=== PATIENT | female | born 2000 | race Two or more races ===

== ENCOUNTER 2022-05-25 10:07 | Emergency (ER) | payer OTHER ==
[~2022-05-25] VITALS: Ht 157.5 cm; Wt 72.6 kg
[2022-05-25] MEDS ORDERED: PRENATAL + DHA1 EAC1 PO (10:21)
== END 2022-05-25 14:24 | disposition home or self-care (01) ==
LOC: ER 10:07
DX: O99.611 Diseases of the digestive system complicating pregnancy, first trimester (principal); K92.89 Other specified diseases of the digestive system; Z3A.11 11 weeks gestation of pregnancy; Z88.6 Allergy status to analgesic agent

== ENCOUNTER → 2022-05-25 | Emergency (ER) | payer OTHER ==
[~2022-05-25] VITALS: Ht 157.5 cm; Wt 72.6 kg
[~2022-05-25] MED LIST: PRENATAL + DHA1 EAC1 PO
== END | disposition left against medical advice (07) ==
LOC: ER 19:08
DX: O26.91 Pregnancy related conditions, unspecified, first trimester (principal); S39.92XA Unspecified injury of lower back, initial encounter; W18.30XA Fall on same level, unspecified, initial encounter; Y93.9 Activity, unspecified; Y92.019 Unspecified place in single-family (private) house as the place of occurrence of the external cause; Z3A.11 11 weeks gestation of pregnancy

== ENCOUNTER 2022-06-21 14:12 | Emergency (ER) | payer OTHER ==
[~2022-06-21] VITALS: Ht 152.4 cm; Wt 73.0 kg
== END 2022-06-21 16:50 | disposition home or self-care (01) ==
LOC: ER 14:12
DX: O26.892 Other specified pregnancy related conditions, second trimester (principal); A49.3 Mycoplasma infection, unspecified site; Z3A.15 15 weeks gestation of pregnancy; Z88.6 Allergy status to analgesic agent

== ENCOUNTER 2022-10-31 08:38 | Outpatient (CLI) | payer OTHER | END 2022-10-31 09:45 | disposition home or self-care (01) | LOC: PRENATAL 08:38 | PROVIDERS: ATTEND Obstetrics & Gynecology Maternal & Fetal Medicine | DX: O26.849 Uterine size-date discrepancy, unspecified trimester (principal); O36.8199 Decreased fetal movements, unspecified trimester, other fetus; O34.219 Maternal care for unspecified type scar from previous cesarean delivery; Z3A.34 34 weeks gestation of pregnancy ==

== ENCOUNTER 2022-11-12 15:29 | Outpatient (CLI) | payer OTHER | END 2022-11-13 13:37 | disposition home or self-care (01) | LOC: OBS/DEL 15:29 | PROVIDERS: ATTEND Obstetrics & Gynecology | DX: O23.43 Unspecified infection of urinary tract in pregnancy, third trimester (principal); N39.0 Urinary tract infection, site not specified; Z3A.36 36 weeks gestation of pregnancy ==

== ENCOUNTER 2022-11-26 20:13 | Outpatient (CLI) | payer OTHER | END 2022-11-27 18:05 | disposition home or self-care (01) | LOC: OBS/DEL 20:13 | PROVIDERS: ATTEND Obstetrics & Gynecology | DX: O47.1 False labor at or after 37 completed weeks of gestation (principal); Z3A.37 37 weeks gestation of pregnancy; Z88.6 Allergy status to analgesic agent ==

== ENCOUNTER 2022-11-29 11:16 | Inpatient (IN) | payer OTHER ==
[~2022-11-29] VITALS: Ht 157.5 cm; Wt 3.2 kg
== END 2022-12-07 13:48 | disposition home or self-care (01) | DRG 785 ==
LOC: OB/GYN 12-04 05:00 → O/R 12-04 05:00 → OB/GYN 12-04 08:15
PROVIDERS: ADMIT Obstetrics & Gynecology; ATTEND Obstetrics & Gynecology
PROC: 0UB70ZZ Excision of Bilateral Fallopian Tubes, Open Approach (ICD-10-PCS; 2022-12-04)
PROC: 4A1HXCZ Monitoring of Products of Conception, Cardiac Rate, External Approach (ICD-10-PCS; 2022-12-04)
PROC: 10D00Z1 Extraction of Products of Conception, Low, Open Approach (ICD-10-PCS; principal; 2022-12-04 08:15)
DX: O34.211 Maternal care for low transverse scar from previous cesarean delivery (principal); Z3A.39 39 weeks gestation of pregnancy; Z30.2 Encounter for sterilization; Z20.822 Contact with and (suspected) exposure to COVID-19; Z37.0 Single live birth

== ENCOUNTER 2023-07-02 17:51 | Emergency (ER) | payer OTHER ==
[~2023-07-02] VITALS: Ht 167.6 cm; Wt 75.7 kg
[2023-07-02 22:14] LABS: HEMATOCRIT 38.4 % (36.0-45.00); HEMOGLOBIN 13.5 g/dL (12.0-15.00); MEAN CELL VOLUME 82.5 fL (80.00-100.00); MEAN CORPUSCULAR HGB CONC 35.1 g/dl (32.0-36.0); PLATELET COUNT 281 K/uL (150-450); RED BLOOD COUNT 4.65 M/uL (4.00-6.00); RED CELL DISTRIBUTION WIDTH 13.1 % (11.5-14.5)
[2023-07-02 22:29] LABS: CREATININE SERUM 0.59 mg/dL (0.55-1.02); GFR 124.19; POTASSIUM 3.76 mEq/L (3.5-5.1)
[2023-07-02 23:18] LABS: PH,URINE 5.5 (5.0-8.0); URINE APPEARANCE Clear; URINE BILIRRUBIN Negative (NEGATIVE); URINE BLOOD Negative; URINE COLOR Yellow; URINE GLUCOSE Negative (NEGATIVE); URINE LEUKOCYTE Negative; URINE NITRATE Negative; URINE PROTEIN Negative (NEGATIVE)
[2023-07-02 23:22] LABS: URINE EPITHELIAL CELLS 12.5 uL (0.0-38.8); URINE RBC 12.3 uL (0.0-20.8); URINE WBC 17.4 uL (0.0-23.2)
== END 2023-07-03 00:09 | disposition home or self-care (01) ==
LOC: ER 17:52
PROVIDERS: General Practice
DX: M54.89 Other dorsalgia (principal); Z88.6 Allergy status to analgesic agent

== ENCOUNTER 2023-11-30 19:42 | Emergency (ER) | payer OTHER ==
[~2023-11-30] VITALS: Ht 162.6 cm; Wt 81.6 kg
[2023-11-30] MEDS ORDERED: GUAIFENESIN 200 MG/10 ML BLIST.PACK PO STA (22:14)
[2023-11-30] MEDS ORDERED: IBUprofen 100 MG/5 ML-120ML ML PO STA (22:15)
== END 2023-11-30 22:29 | disposition home or self-care (01) ==
LOC: ER 19:42
DX: J11.1 Influenza due to unidentified influenza virus with other respiratory manifestations (principal); Z20.822 Contact with and (suspected) exposure to COVID-19; Z88.6 Allergy status to analgesic agent

== ENCOUNTER 2024-05-30 08:13 | Emergency (ER) | payer OTHER ==
[~2024-05-30] VITALS: Ht 157.5 cm; Wt 82.1 kg
[2024-05-30] MEDS ORDERED: ORPHENADRINE CITRATE 30 MG/ML AMPUL IM STA (09:21)
[2024-05-30] MEDS ORDERED: KETOROLAC TROMETHAMINE 60 MG VIAL IM STA (09:22)
[2024-05-30] MEDS ORDERED: ORPHENADRINE CITRATE 30 MG/ML AMPUL ONE (09:25)
[2024-05-30] MEDS ORDERED: KETOROLAC TROMETHAMINE 60 MG VIAL IM ONE (09:25)
== END 2024-05-30 14:22 | disposition home or self-care (01) ==
LOC: ER 08:15
DX: R51.9 Headache, unspecified (principal)

== ENCOUNTER 2025-04-20 07:06 | Emergency (ER) | payer OTHER ==
[2025-04-20] MEDS ORDERED: IBUPROFEN600 MG PO (10:27)
[2025-04-20] MEDS ORDERED: KETOROLAC TROMETHAMINE 30 MG VIAL IM ONE (10:30)
[2025-04-20] MEDS ORDERED: DEXAMETHASONE SODIUM PHOSPHATE 4 MG/ML VIAL IM ONE (10:30)
== END 2025-04-20 10:57 | disposition home or self-care (01) ==
LOC: ER 07:20
DX: R51.9 Headache, unspecified (principal)

== ENCOUNTER → 2025-07-21 08:55 | Outpatient (CLI) | payer OTHER ==
[~2025-07-21 08:55] MED LIST changes: +IBUPROFEN600 MG PO
[2025-07-21 09:30] LABS: URINE APPEARANCE Clear; URINE BILIRRUBIN Negative (NEGATIVE); URINE BLOOD Negative; URINE COLOR Yellow; URINE GLUCOSE Negative (NEGATIVE); URINE KETONE Negative (NEGATIVE); URINE LEUKOCYTE Trace; URINE NITRATE Negative; URINE PROTEIN Negative (NEGATIVE); URINE UROBILINOGEN 0.2 E.U./dl
[2025-07-21 09:32] LABS: URINE BACTERIA 1029.5 uL (0.0-1933); URINE EPITHELIAL CELLS 39.2 uL (0.0-38.8); URINE RBC 5.8 uL (0.0-20.8); URINE WBC 28.6 uL (0.0-23.2)
[2025-07-21 09:33] LABS: BASO % 0.6 % (0.1-1.2); EOS # 0.06 (0.04-0.54); EOS % 0.9 % (0.7-7.0); LYMPH # 2.32 (1.18-3.74); LYMPH % 35.3 % (19.3-53.1); MEAN PLATELET VOLUME 10.00 fl (9.4-12.4); MONO # 0.48 (0.24-0.82); MONO % 7.3 % (4.7-12.5); NEUT # 3.66 (1.56-6.13); NEUT % 55.6 % (34.0-71.1); RED CELL DISTRIBUTION WIDTH 13.0 % (11.6-14.4)
[2025-07-21 09:38] LABS: URINE CAST 0.00 uL (0.0-1.40)
[2025-07-21 10:28] LABS: CHOL HDL RATIO 2.8 (0-5.0); HDL 53.0 mg/dl (40-60); LDL 85.0 mg/dl (0-130); T4 FREE 0.82 NG/ML (0.76-1.46); TSH 0.598 uIU/mL (0.358-3.74); VLDL 12.0 (0-39)
[2025-07-21 12:26] LABS: T3 TOTAL 1.05 ng/ml (0.846-2.02); VITAMIN D3 25 HYDROXY 23.27 ng/ml (30-120)
== END | disposition home or self-care (01) ==
LOC: LAB 08:55
DX: E55.9 Vitamin D deficiency, unspecified (principal); D64.9 Anemia, unspecified; E11.9 Type 2 diabetes mellitus without complications; E78.00 Pure hypercholesterolemia, unspecified; R80.9 Proteinuria, unspecified; E03.9 Hypothyroidism, unspecified; N39.0 Urinary tract infection, site not specified

== ENCOUNTER → 2025-08-17 | Emergency (ER) | payer OTHER ==
[~2025-08-17] VITALS: Ht 154.9 cm; Wt 78.0 kg
[~2025-08-17] MED LIST changes: +HYOSCYAMINE SULFATE 0.125 MG TAB.SUBL SL ONE; +METOCLOPRAMIDE HCL 5 MG/ML VIAL IM ONE
== END | disposition left against medical advice (07) ==
LOC: ER 07:53
DX: K52.89 Other specified noninfective gastroenteritis and colitis (principal)

== ENCOUNTER 2025-08-27 07:58 | Emergency (ER) | payer OTHER ==
[~2025-08-27] VITALS: Ht 152.4 cm; Wt 77.1 kg
[~2025-08-27 07:58] MED LIST changes: -HYOSCYAMINE SULFATE 0.125 MG TAB.SUBL SL ONE; -METOCLOPRAMIDE HCL 5 MG/ML VIAL IM ONE
[2025-08-27] MEDS ORDERED: CEFTRIAXONE SODIUM 1,000 MG VIAL IM STA (08:54)
[2025-08-27] MEDS ORDERED: DEXAMETHASONE SODIUM PHOSPHATE 4 MG/ML VIAL IM STA (08:54)
[2025-08-27] MEDS ORDERED: ACETAMINOPHEN 500 MG GEL..CAP PO ONE ×2 (09:00→09:13)
[2025-08-27] MEDS ORDERED: CETIRIZINE HCL 10 MG TABLET PO ONE (09:00)
[2025-08-27] MEDS ORDERED: GUAIFENESIN 200 MG/10 ML BLIST.PACK PO ONE ×2 (09:00→09:14)
[2025-08-27] MEDS ORDERED: CETIRIZINE HCL 5MG/5ML BLIST.PACK PO ONE (09:13)
[2025-08-27] MEDS ORDERED: DEXAMETHASONE SODIUM PHOSPHATE 4 MG/ML VIAL ONE (09:13)
[2025-08-27] MEDS ORDERED: CEFTRIAXONE SODIUM 1,000 MG VIAL ONE (09:14)
[2025-08-27 09:42] LABS: BASO % 0.7 % (0.1-1.2); EOS # 0.07 (0.04-0.54); EOS % 1.1 % (0.7-7.0); LYMPH # 1.94 (1.18-3.74); LYMPH % 31.8 % (19.3-53.1); MEAN PLATELET VOLUME 10.10 fl (9.4-12.4); MONO # 0.48 (0.24-0.82); MONO % 7.9 % (4.7-12.5); NEUT # 3.57 (1.56-6.13); NEUT % 58.3 % (34.0-71.1); RED CELL DISTRIBUTION WIDTH 12.3 % (11.6-14.4)
[2025-08-27 10:52] LABS: COVID-19 AG NEGATIVE (NEGATIVE)
[2025-08-27] MEDS ORDERED: TUSSIN DM LIQU118 ML PO (12:00)
[2025-08-27] MEDS ORDERED: AZITHROMYCIN500 MG PO (12:00)
== END 2025-08-27 12:07 | disposition home or self-care (01) ==
LOC: ER 07:59
PROVIDERS: General Practice
DX: J06.9 Acute upper respiratory infection, unspecified (principal); Z20.822 Contact with and (suspected) exposure to COVID-19